=== PATIENT | female | born 1965 | race Caucasian/White ===

== ENCOUNTER → 2020-04-18 | Day surgery (SDC) | payer OTHER ==
[~2020-04-18] MED LIST: ALLERGY RELIEF10 M1 PO; CALCIUM CARBON600 M1 PO; EFFEXOR XR150 MG PO; HYDROCODON-ACE1 EAC6 PO
[2020-04-18 07:30] LABS: HCT 42.4 % (37.0-47.0); HGB 13.9 g/dl (12.5-16.0); MCH 30.3 pg (25.0-31.0); MCHC 32.8 g/dL (32.0-36.0); MCV 92.6 fL (78.0-100.0); RBC 4.58 M/uL (4.20-5.40); RDW 13.8 % (11.5-14.0); WBC 7.6 K/uL (4.0-10.5)
[2020-04-18 08:01] LABS: ALBUMIN 4.2 g/dL (3.4-5.0); BILIRUBIN - TOTAL 0.5 mg/dL (0.2-1.0); BUN/CREAT RATIO (CALC) 14.8 RATIO; CREATININE 0.61 mg/dL (0.51-0.95); GLOBULIN (CALCULATION) 3.9 g/dL; POTASSIUM 3.8 mmol/L (3.5-5.1); TOTAL PROTEIN 8.1 g/dL (6.4-8.2)
== END | disposition home or self-care (01) ==
LOC: FAS 06:45
PROVIDERS: Surgery
DX: Z12.11 Encounter for screening for malignant neoplasm of colon (principal); K63.5 Polyp of colon; K57.30 Diverticulosis of large intestine without perforation or abscess without bleeding; F41.9 Anxiety disorder, unspecified; F17.210 Nicotine dependence, cigarettes, uncomplicated; Z86.010 Personal history of colon polyps; Z79.899 Other long term (current) drug therapy
CPT/HCPCS: 36415; 80053; J1610; J2704; J7120; U0002

== ENCOUNTER 2021-06-23 15:29 | Emergency (ER) | payer OTHER ==
[2021-06-23 16:38] LABS: CORONAVIRUS 2019 SARS-COV-2 NEGATIVE (NEGATIVE); INFLUENZA A NAA NEGATIVE (NEGATIVE)
== END 2021-06-23 17:35 | disposition home or self-care (01) ==
LOC: FER 15:29
PROVIDERS: Physician Assistant
DX: J06.9 Acute upper respiratory infection, unspecified (principal); F17.210 Nicotine dependence, cigarettes, uncomplicated; Z20.822 Contact with and (suspected) exposure to COVID-19
CPT/HCPCS: 71046; U0002

== ENCOUNTER 2021-06-25 07:05 | Emergency (ER) | payer OTHER ==
[2021-06-25 08:04] LABS: BASOPHIL 0.2 % (0-2); EOSINOPHIL 4.2 % (0-5); HGB 11.5 g/dl (12.5-16.0); LYMPHOCYTE 9.5 % (15-48); MCHC 33.8 g/dL (32.0-36.0); MCV 85.9 fL (78.0-100.0); MONOCYTE 2.5 % (0-12); MPV 10.5 fL (6.0-9.5); NEUTROPHIL 82.1 % (41-80); PLT 135 K/uL (150-400); RBC 3.96 M/uL (4.20-5.40); RDW 15.9 % (11.5-14.0)
[2021-06-25 08:22] LABS: LACTIC ACID 1.1 mmol/L (0.4-1.9)
[2021-06-25 08:27] LABS: ALBUMIN 3.1 g/dL (3.4-5.0); ALKALINE PHOSHATASE 124 U/L (46-116); ALT 44 U/L (14-59); AST 61 U/L (15-37); BILIRUBIN - TOTAL 0.3 mg/dL (0.2-1.0); BUN 8 mg/dL (7-18); BUN/CREAT RATIO (CALC) 10.7 RATIO; C-REACTIVE PROTEIN >18.00 mg/dL (<=0.90); CHLORIDE 95 mmol/L (98-107); CO2 (BICARBONATE) 21 mmol/L (21-32); CREATININE 0.75 mg/dL (0.51-0.95); GLOBULIN (CALCULATION) 3.6 g/dL; GLUCOSE 118 mg/dL (74-106); POTASSIUM 3.3 mmol/L (3.5-5.1); TOTAL PROTEIN 6.7 g/dL (6.4-8.2)
[2021-06-25 09:39] LABS: BAND 39 % (0-10); EOSINOPHIL(M) 4 % (0-5); LYMPHOCYTE(M) 12 % (15-48); METAMYELOCYTE 2; MONOCYTE(M) 2 % (0-12); NEUTROPHILS(M) 41 % (41-80); NRBC 0; TOTAL CELL COUNT 100
[2021-06-25 09:43] LABS: PLATELET ESTIMATE DECREASED; PLATELET MORPHOLOGY NORMAL
[2021-06-25 10:26] LABS: BILIRUBIN NEGATIVE (NEGATIVE); BLOOD TRACE-INTACT Ery/uL (NEGATIVE); CLARITY CLEAR (CLEAR); COLOR YELLOW (YELLOW); GLUCOSE (U) NORMAL (NORMAL); LEUKOCYTES NEGATIVE Leu/uL (NEGATIVE); NITRITE NEGATIVE (NEGATIVE); PROTEIN TRACE (LOW) mg/dL (NEGATIVE); SPECIFIC GRAVITY 1.015 (1.001-1.030); UROBILINOGEN 0.2 mg/dL (0.2-1.0)
[2021-06-25 10:42] LABS: BACTERIA TRACE; URINARY RBC RARE; URINARY WBC RARE
== END 2021-06-25 13:08 | disposition home or self-care (01) ==
LOC: FER 07:05
PROVIDERS: Emergency Medicine
DX: R06.02 Shortness of breath (principal); R21 Rash and other nonspecific skin eruption; T43.215A Adverse effect of selective serotonin and norepinephrine reuptake inhibitors, initial encounter; R50.9 Fever, unspecified; E87.1 Hypo-osmolality and hyponatremia; R94.31 Abnormal electrocardiogram [ECG] [EKG]; F17.200 Nicotine dependence, unspecified, uncomplicated
CPT/HCPCS: 36415; 36600; 71250; 71275; 80053; 81001; 82803; 83605; 83880; 84145; 84484; 86140; 87040; 87088; 93005; J1200; J2930; J7030; Q9967